=== PATIENT | female | born 1985 | race Caucasian/White ===

== ENCOUNTER 2021-01-08 06:00 | Observation (INO) | payer OTHER ==
[2021-01-08] MEDS ORDERED: hydrALAZINE 20 MG/ML VIAL SLOW IVP PRN (06:23)
[2021-01-08] MEDS ORDERED: Ondansetron PF 4 MG/2 ML Vial IVP PRN (06:23)
[2021-01-08] MEDS ORDERED: Promethazine HCl 25 MG/ML VIAL IM PRN (06:23)
[2021-01-08] MEDS ORDERED: Butorphanol Tartrate 1 MG/ML VIAL SLOW IVP PRN (06:23)
[2021-01-08] MEDS ORDERED: Misoprostol 100 MCG TAB VAG ONE (06:45)
[2021-01-08 07:44] VITALS: BMI 25.0
[2021-01-08 08:17] LABS: Hemoglobin 13.3 g/dL (12.0-15.5); Mean Corpuscular Hemoglobin 32.6 pg (27.0-33.0); Mean Corpuscular Volume 93.1 fl (81.6-98.3); Mean Platelet Volume 11.8 fl (7.4-10.4); Platelet Count 187 10x3/uL (150-450); RBC Distribution Width 12.5 % (11.5-14.5); Red Blood Cell (RBC) Count 4.08 10x6/uL (3.90-5.03); White Blood Cell (WBC) Count 9.9 10x3/uL (3.5-10.5)
[2021-01-08] MEDS ORDERED: Lorazepam 1 MG TAB PO PRN (08:40)
[2021-01-08 08:47] LABS: Syphilis Antibody Nonreactive (Nonreactive); Syphilis Antibody Index 0.04 S/CO (<1.00 Non-Reactive)
[2021-01-08] MEDS ORDERED: Misoprostol 200 MCG TAB ONE ×4 (09:17→22:48)
[2021-01-08] MEDS ORDERED: Misoprostol 100 MCG TAB VAG SCH (09:45)
[2021-01-08 10:58] LABS: SARS-CoV-2 NAA Rapid Test Not Detected (NotDetected)
[2021-01-08] MEDS ORDERED: Ibuprofen 800 MG TAB ONE (20:11)
[2021-01-08] MEDS ORDERED: Ibuprofen 800 MG TAB PO SCH (20:30)
[2021-01-12 00:12] LABS: HSV-2 IgG Type Specific Less than 0.91 index (0.00-0.90); Rubella IgM ABS Less than 20.0 AU/mL (0.0-19.9); Toxoplasma IgG AB Less than 3.0 IU/mL (0.0-7.1); Toxoplasma IgM ABS Less than 3.0 AU/mL (0.0-7.9)
== END 2021-01-09 09:29 | disposition home or self-care (01) ==
LOC: CSHLD 06:08 → INTOOBSV 06:08 → CSHLD 06:29
PROVIDERS: ADMIT Obstetrics & Gynecology; ATTEND Obstetrics & Gynecology
PROC: 0U7C7ZZ Dilation of Cervix, Via Natural or Artificial Opening (ICD-10-PCS; principal; 2021-01-08)
DX: O02.1 Missed abortion (principal); O04.6 Delayed or excessive hemorrhage following (induced) termination of pregnancy; Z88.2 Allergy status to sulfonamides; Z91.040 Latex allergy status; Z20.822 Contact with and (suspected) exposure to COVID-19
CPT/HCPCS: 36415; 76815; 85027; 86644; 86696; 86698; 86762; 86777; 86780; 86850; 86900; 86901; 88300; 88305; J2550; U0002

== ENCOUNTER 2022-05-27 13:05 | Day surgery (SDC) | payer OTHER ==
[2022-05-27 13:53] LABS: Hemoglobin 12.8 g/dL (12.0-15.5); Mean Corpuscular Hemoglobin 33.3 pg (27.0-33.0); Mean Corpuscular Volume 92.7 fl (81.6-98.3); Mean Platelet Volume 11.1 fl (7.4-10.4); Platelet Count 179 10x3/uL (150-450); RBC Distribution Width 12.8 % (11.5-14.5); Red Blood Cell (RBC) Count 3.84 10x6/uL (3.90-5.03)
[2022-05-27] MEDS ORDERED: Dexamethasone 4 mg/ml Vial ONE (14:20)
[2022-05-27] MEDS ORDERED: Ondansetron PF 4 MG/2 ML Vial ONE (14:20)
[2022-05-27] MEDS ORDERED: Rocuronium Bromide 10 MG/ML (10ML VIAL) ONE (14:20)
[2022-05-27] MEDS ORDERED: Fentanyl 100 MCG/2 ML VIAL ONE (14:20)
[2022-05-27] MEDS ORDERED: PROPOFOL 20 ML ONE (14:20)
[2022-05-27] MEDS ORDERED: Lidocaine 1% PF 5 ML VIAL ONE (14:20)
[2022-05-27] MEDS ORDERED: Midazolam HCl 2 mg/2 ml Vial ONE (14:20)
[2022-05-27] MEDS ORDERED: SUGAMMADEX SODIUM 200 MG/2 ML VIAL ONE (15:00)
[2022-05-27] MEDS ORDERED: Misoprostol 200 MCG TAB ONE (15:22)
[2022-05-27] MEDS ORDERED: Ketorolac Tromethamine 30 MG/ML VIAL ONE (15:29)
[2022-05-27] MEDS ORDERED: Ibuprofen 400 MG TAB PO PRN (15:56)
[2022-05-27] MEDS ORDERED: cefTRIAXone\\ROCEPHIN 1 GM in Sodium Chloride 0.9% 100 ML IVPB SCH (16:15)
== END 2022-05-27 16:55 | disposition home or self-care (01) ==
LOC: CSHSDC 13:05
PROVIDERS: ATTEND Obstetrics & Gynecology
PROC: 10D17ZZ Extraction of Products of Conception, Retained, Via Natural or Artificial Opening (ICD-10-PCS; principal; 2022-05-27)
DX: O02.1 Missed abortion (principal); Z3A.12 12 weeks gestation of pregnancy; Z88.2 Allergy status to sulfonamides; Z91.040 Latex allergy status; Z79.82 Long term (current) use of aspirin
CPT/HCPCS: 85027; 86850; 86900; 86901; 88305; J0696; J1100; J1885; J2250; J2405; J2704; J3010; J3490